=== PATIENT | male | born 2000 | race Caucasian/White ===

== ENCOUNTER → 2021-12-19 15:27 | Outpatient (BNVA) | payer BC, MEDICAID, SELFPAY | PROVIDERS: Family Provider Family Medicine; PCP Family Medicine; Visit Provider Family Medicine | DX: U07.1 COVID-19 (principal); R52 Pain, unspecified | CPT/HCPCS: 87426 ==

== ENCOUNTER → 2022-05-16 11:26 | Outpatient (BNVA) | payer BC, MEDICAID, SELFPAY | PROVIDERS: Family Provider Family Medicine; PCP Family Medicine; Visit Provider Family Medicine | DX: R52 Pain, unspecified (principal) | CPT/HCPCS: 87400 ==